=== PATIENT | female | born 1930 | race Hispanic/Latino ===

== ENCOUNTER 2021-04-06 23:09 | Emergency (ER) | payer MEDICARE ==
--- NOTE | 2021-04-06 23:22 | Emergency Department Report ---
ED CPR HPI - General Stated Complaint: CARDIAC ARREST Time Seen by Provider: 04/06/21 23:17 Source: EMS - History of Present Illness Initial Comments: Patient is 89 years old female with history of dementia, hypertension and COPD. Patient brought to the emergency room via EMS from a local [facility] and a full cardiac arrest CPR in progress. EMS stated that [facility] staff stated that the last time they saw the patient was 3 hours prior to her being found in cardiac arrest. EMS stated that CPR started by the [facility] staff. EMS started ACLS protocol and patient had a He airway. Patient found to be in asystole and remained in asystole. Patient received 3 mg of epinephrine, sodium bicarb by EMS with no change. Upon arrival to the ER, ACLS protocol continued however patient remained in asystole with 4 mm fixed and dilated pupil. Patient also showed some rigor mortis. Patient pronounced at 11:11 PM. For further information placed refer to code sheet. No family available at this moment. Complaint: found unresponsive -: unknown Place: [facility] Bystander CPR Performed: Yes AED Applied by Bystander/Rubber Goods Inspector: No Initial Findings in the Field: no pulse, systole ROSC in the Field: No Associated Injuries: No Treatments Prior to Arrival: other airway device, chest compressions, epinephrine mgs #, sodium bicarbonate ED Review of Systems ROS: Stated complaint: CARDIAC ARREST Other details as noted in HPI Comment: Unobtainable due to pts medical conditions ED Physical Exam - General General appearance: other (CPR in progress.) - Eye Pupils: Present: other (4 mm fixed and dilated.) - Respiratory Respiratory exam: Present: other (No spontaneous breathing.) - Cardiovascular Cardiovascular Exam: Present: other (No spontaneous heart tones.) - GI/Abdominal GI/Abdominal exam: Present: soft. Absent: distended - Neurological Exam Neurological exam: Present: other (CPR in progress.) - Skin Skin exam: Present: dry Critical Care Time: Yes Critical care time in (mins) excluding proc time.: 35 Critical care attestation.: If time is entered above; I have spent that time in minutes in the direct care of this critically ill patient, excluding procedure time. ED Disposition Clinical Impression: Cardiopulmonary arrest Disposition: 20 Is pt being admited?: No Condition: Stable
== END 2021-04-06 23:30 ==
LOC: EDSEX → ED 23:09
DX: I46.9 Cardiac arrest, cause unspecified (principal)
CPT/HCPCS: 92950; 99291